=== PATIENT | female | born 1995 | race American Indian/Alaskan Native ===

== ENCOUNTER 2019-03-21 12:55 | Emergency (ER) | payer MEDICAID ==
--- NOTE | 2019-03-21 13:17 | Event Note ---
ED Screening Note Date of service: 03/21/19 Time: 13:15 ED Screening Note: 24 y/o female c/o vaginal bleeding and pelvic pain. She report that she is about 9wks preg. This initial assessment/diagnostic orders/clinical plan/treatment(s) is/are subject to change based on patients health status, clinical progression and re- assessment by fellow clinical providers in the ED. Further treatment and workup at subsequent clinical providers discretion. Patient/guardian urged not to elope from the ED as their condition may be serious if not clinically assessed and managed. Initial orders include:
--- NOTE | 2019-03-21 13:37 | Emergency Department Report ---
ED Female HPI - General Chief complaint: Vaginal Bleeding Stated complaint: ABDOMINAL PAIN/VAG BLEED/PREG Time Seen by Provider: 03/21/19 13:28 Source: patient Mode of arrival: Ambulatory Limitations: No Limitations - History of Present Illness Initial comments: cramping for a few days, spotting 9w no other c/o MD Complaint: vaginal bleeding -: Gradual, days(s) (2) Radiation: non-radiating Severity: mild Severity scale (0 -10): 2 Quality: cramping Consistency: intermittent Improves with: none Worsens with: none Are you Now?: Yes Associated Symptoms: denies other symptoms, vaginal bleeding - Related Data Allergies Allergy/AdvReac Type Severity Reaction Status Date / Time No Known Allergies Allergy Unverified 03/21/19 12:58 ED Review of Systems ROS: Stated complaint: ABDOMINAL PAIN/VAG BLEED/PREG Other details as noted in HPI Comment: All other systems reviewed and negative Gastrointestinal: as per HPI Genitourinary: as per HPI ED Past Medical Hx - Past Medical History Previous Medical History?: No - Surgical History Additional Surgical History: T&A, tubes - Social History Smoking Status: Never Smoker Substance Use Type: None ED Physical Exam - General Limitations: No Limitations General appearance: alert, in no apparent distress - Head Head exam: Present: atraumatic, normocephalic - Eye Eye exam: Present: normal appearance - ENT ENT exam: Present: mucous membranes moist - Neck Neck exam: Present: normal inspection - Respiratory Respiratory exam: Present: normal lung sounds bilaterally. Absent: respiratory distress - Cardiovascular Cardiovascular Exam: Present: regular rate, normal rhythm. Absent: systolic murmur, diastolic murmur, rubs, gallop - GI/Abdominal GI/Abdominal exam: Present: soft, normal bowel sounds. Absent: tenderness, guarding, rebound - Extremities Exam Extremities exam: Present: normal inspection - Back Exam Back exam: Present: normal inspection - Neurological Exam Neurological exam: Present: alert, oriented X3 - Psychiatric Psychiatric exam: Present: normal affect, normal mood - Skin Skin exam: Present: warm, dry, intact, normal color. Absent: rash ED Course Vital Signs 03/21/19 13:12 Temperature 98.4 F Pulse Rate 105 H Respiratory 18 Rate Blood Pressure 129/63 ED Medical Decision Making - Lab Data Result diagrams: 03/21/19 14:13 03/21/19 15:35 - Radiology Data Radiology results: image reviewed interpreted by me: SVIUP - Medical Decision Making vaginal spotting/cramping 9w US/labs pending US read by me = 9w, 2d IUP, HR 170 anticipate outpatient follow up with OB and pelvic rest, pending rad report. - Differential Diagnosis threatened ab, ab, ectopic Critical care attestation.: If time is entered above; I have spent that time in minutes in the direct care of this critically ill patient, excluding procedure time. ED Disposition Clinical Impression: Threatened miscarriage Disposition: DC-01 TO HOME OR SELFCARE Is pt being admited?: No Condition: Good Instructions: Threatened Miscarriage (ED) Referrals: SHANNON ROONEY MD [Primary Care Provider] - 3-5 Days TROY KESSLER MD [Staff Physician] - 3-5 Days
[2019-03-21 14:37] LABS: Basophils # (Auto) 0.1 K/mm3 (0.0-0.1); Basophils % (Auto) 1.1 % (0.0-1.8); Eosinophils # (Auto) 0.1 K/mm3 (0.0-0.4); Eosinophils % (Auto) 1.7 % (0.0-4.3); Hematocrit 36.4 % (30.3-42.9); Hemoglobin 12.2 gm/dl (10.1-14.3); Lymphocytes # (Auto) 1.2 K/mm3 (1.2-5.4); Lymphocytes % (Auto) 26.1 % (13.4-35.0); Mean Corpuscular HGB Conc 34 % (30-34); Mean Corpuscular Volume 82 fl (79-97); Monocytes # (Auto) 0.5 K/mm3 (0.0-0.8); Monocytes % (Auto) 10.8 % (0.0-7.3); Platelet Count 320 K/mm3 (140-440); Red Blood Count 4.45 M/mm3 (3.65-5.03); Red Cell Distribution Width 14.8 % (13.2-15.2)
[2019-03-21 15:21] LABS: BUN/Creatinine Ratio TNR; Blood Urea Nitrogen TNR mg/dL (7-17); Calcium TNR mg/dL (8.4-10.2)
[2019-03-21 15:22] LABS: Alanine Aminotransferase TNR units/L (7-56); Albumin TNR g/dL (3.9-5)
[2019-03-21 15:23] LABS: Hemolysis Index TNR
[2019-03-21 15:27] LABS: Bacteria,Urine 1+ /HPF (Negative); Bilirubin,Urine NEG (Negative); Blood,Urine MOD (Negative); Color,Urine Yellow (Yellow); Mucus,Urine FEW /HPF; Protein,Urine <15 mg/dL mg/dL (Negative); Urobilinogen,Urine < 2.0 mg/dL (<2.0)
[2019-03-21 16:14] LABS: Alanine Aminotransferase 14 units/L (7-56); Albumin 4.2 g/dL (3.9-5); BUN/Creatinine Ratio 12; Blood Urea Nitrogen 6 mg/dL (7-17); Calcium 9.5 mg/dL (8.4-10.2); Hemolysis Index 2
--- NOTE | 2019-03-21 19:01 | Ultrasound Report ---
PROCEDURE: Limited abdominal ultrasound. TECHNIQUE: Real-time limited sonographic examination was performed for evaluation of each fetus with image documentation (1 or more fetuses). HISTORY: 9 weeks preg with bleeding and pain COMPARISONS: None. FINDINGS: Image quality is limited because the bladder was not distended. The uterus measures 8.7 cm x 6.7 cm x 7.2 cm. Myometrium is grossly normal. There is an intrauterine gestational sac. A pole is visi ble. Cardiac activity is documented at 170 bpm. The crown-rump length measurement is 2.95 cm. This in dicates menstrual age of 9 weeks 6 days. The estimated date of confinement is 10/18/2019. Neither ovar y is visualized. There is no free fluid in the cul-de-sac. IMPRESSION: Viable intrauterine with a menstrual age of approximately 9 weeks 6 days. This document is electronically signed by Devonte Franklin MD., March 21 2019 06:59:55 PM ET
--- NOTE | 2019-03-21 19:04 | Ultrasound Report ---
PROCEDURE: Transvaginal obstetrical ultrasound. TECHNIQUE: Real-time transvaginal sonography of the uterus, placenta, amniotic fluid, adnexa, and fe tus was performed with image documentation. Measurements were obtained to determine age/size. M -mode Doppler was used to document heartbeat. HISTORY: 9 weeks preg with bleeding and pain COMPARISONS: None. FINDINGS: The uterus measures 9.1 cm x 6.3 cm x 8.2 cm. The myometrium appears uniform. There is an intrauterin e gestational sac. A pole is visible. Cardiac activity is documented at 170 bpm. The crown-rump length measurement is 2.45 cm. This indicates a menstrual age of 9 weeks 1 day. The estimated date o f confinement is 10/23/2019. Neither ovary is visualized. IMPRESSION: Viable intrauterine with a menstrual age of 9 weeks 1 day. This document is electronically signed by Devonte Franklin MD., March 21 2019 07:02:18 PM ET
--- NOTE | 2019-03-21 19:30 | Emergency Department Report ---
Blank Doc - Documentation Documentation: Patient was signed out by my colleague CHUCK Zendejas pending ultrasound r esults. Patient is currently and having light vaginal spotting, labs are WNL, H/H are normal, UA is normal, pt is Rh (+). US shows: Viable intrauterine with a menstrual age of 9 weeks 1 day. Patient was advised to follow up with [facility] in next 2-3 days. Advised patient that she would repeat beta hCG Quant in 2 days. Return to the emergency room for any new or worsening symptoms. Drink plenty of water and take her vitamin. She diagnosed with threatened miscarriage given discharge paperwork.
[2019-03-21 19:44] VITALS: BP 119/78
== END 2019-03-21 19:41 | disposition home or self-care (01) ==
LOC: ED 12:55
DX: O20.0 Threatened abortion (principal); Z3A.09 9 weeks gestation of pregnancy; Z90.89 Acquired absence of other organs
CPT/HCPCS: 36415; 76801; 76817; 80053; 81001; 84702; 85025; 86900; 86901; 99284

== ENCOUNTER 2019-09-29 17:47 | Outpatient (CLI) | payer MEDICAID ==
[2019-09-29 18:12] VITALS: BP 107/55
[2019-09-29] MEDS ORDERED: LACTATED RINGERS 500 ML IV ONE (19:02)
== END 2019-09-29 19:10 | disposition home or self-care (01) ==
LOC: TRG 17:47
PROVIDERS: ATTEND Obstetrics & Gynecology
DX: O47.02 False labor before 37 completed weeks of gestation, second trimester (principal); Z3A.36 36 weeks gestation of pregnancy